=== PATIENT | female | born 1955 | race African-American/Black ===

== ENCOUNTER 2024-09-16 16:21 | Emergency (ER) | payer MEDICARE, MEDICAID ==
[~2024-09-16] VITALS: Ht 167.6 cm; Wt 90.0 kg
[2024-09-16 16:23] VITALS: TEMP 36.9; O2SAT 99
[2024-09-16] MEDS: KETOROLAC 15MG/ML VIAL IM ONE (22:00)
[2024-09-16] MEDS ORDERED: NAPR-1176 MT (23:37)
[2024-09-16] MEDS ORDERED: CYCL5TAB3 MT (23:39)
[2024-09-16] MEDS ORDERED: LIDO-53 TP (23:39)
[2024-09-17 00:04] VITALS: BP 169/98; PULSE 70; RESP 18; O2SAT 98
== END 2024-09-17 00:05 | disposition home or self-care (01) ==
LOC: ER 16:21
DX: M25.551 Pain in right hip (principal); M25.571 Pain in right ankle and joints of right foot; R10.2 Pelvic and perineal pain; I10 Essential (primary) hypertension; Z79.1 Long term (current) use of non-steroidal anti-inflammatories (NSAID)
CPT/HCPCS: 99284; 74176; 73610; 96372; J1885